=== PATIENT | female | born 1985 | race Caucasian/White ===

== ENCOUNTER → 2017-01-18 | Outpatient (CLI) | payer OTHER ==
[~2017-01-18] MED LIST: MISCCAP80 PO; MULT-506 PO
== END | disposition home or self-care (01) ==
LOC: C.PAPS 14:56
PROVIDERS: ATTEND Obstetrics & Gynecology
DX: Z12.4 Encounter for screening for malignant neoplasm of cervix (principal); R87.616 Satisfactory cervical smear but lacking transformation zone; Z87.42 Personal history of other diseases of the female genital tract

== ENCOUNTER → 2017-01-28 | Outpatient (CLI) | payer OTHER ==
[2017-01-28 13:19] LABS: PROLACTIN 7.54 ng/mL
== END ==
LOC: C.LAB 11:51
PROVIDERS: ATTEND Obstetrics & Gynecology
DX: Z31.41 Encounter for fertility testing (principal); L70.9 Acne, unspecified

== ENCOUNTER → 2017-02-27 | Outpatient (CLI) | payer OTHER | END | disposition home or self-care (01) | LOC: C.LAB1850 16:45 | PROVIDERS: ATTEND Obstetrics & Gynecology | DX: Z32.00 Encounter for pregnancy test, result unknown (principal) ==

== ENCOUNTER → 2017-03-23 | Outpatient (CLI) | payer OTHER ==
[2017-03-23 14:47] LABS: URINE APPEARANCE CLEAR (CLEAR); URINE BILIRUBIN NEG (NEG); URINE COLOR YELLOW; URINE NITRITE NEG (NEG); URINE PH 7.5 (4.5-7.5); URINE SPECIFIC GRAVITY 1.009 (1.000-1.030); UROBILINOGEN NEG (NEG)
[2017-03-23 14:49] LABS: MANUAL MICROSCOPIC REQUIRED? NO; REVIEW REQ? NO
[2017-03-27 04:24] LABS: CHLAMYDIA TRACH RNA*** NOT DETECTED (NOT DETECTED); GC (NEIS GONORRHOEAE)RNA** NOT DETECTED (NOT DETECTED)
== END | disposition home or self-care (01) ==
LOC: C.LABSPEC 13:30
PROVIDERS: ATTEND Obstetrics & Gynecology
DX: Z34.01 Encounter for supervision of normal first pregnancy, first trimester (principal)

== ENCOUNTER → 2017-03-23 | Outpatient (CLI) | payer OTHER ==
[2017-03-23 12:13] LABS: BASO % 0.2 %; BASO ABS # 0.02 K/uL (0-0.2); COMPLETE YES; IG% 0.2 %; LYMPH % 15.9 %; LYMPH ABS # 1.44 K/uL (1.2-3.4); MEAN CELL VOLUME 92.5 fL (80-100); MEAN CORPUSCULAR HEMOGLOBIN 31.4 pg (25-34); MEAN CORPUSCULAR HGB CONC 33.9 g/dl (32-36); MEAN PLATELET VOLUME 10.3 fL (7.4-10.4); NEUT % 73.7 %; PLATELET COUNT 253 K/uL (130-400); RED BLOOD COUNT 4.11 M/uL (4.2-5.4); WHITE BLOOD COUNT 9.08 K/uL (4.8-10.8)
== END | disposition home or self-care (01) ==
LOC: C.LAB1850 10:13
PROVIDERS: ATTEND Obstetrics & Gynecology
DX: Z34.01 Encounter for supervision of normal first pregnancy, first trimester (principal)

== ENCOUNTER → 2017-04-12 | Outpatient (CLI) | payer OTHER | END | disposition home or self-care (01) | LOC: C.LAB1850 16:39 | PROVIDERS: ATTEND Obstetrics & Gynecology | DX: Z13.79 Encounter for other screening for genetic and chromosomal anomalies (principal) ==

== ENCOUNTER → 2017-05-23 | Outpatient (CLI) | payer OTHER ==
[2017-05-23 13:18] LABS: GTGD 50 Grams
== END | disposition home or self-care (01) ==
LOC: C.LAB1850 09:25
PROVIDERS: ATTEND Obstetrics & Gynecology
DX: Z34.02 Encounter for supervision of normal first pregnancy, second trimester (principal)

== ENCOUNTER → 2017-06-01 | Outpatient (CLI) | payer OTHER ==
[2017-06-04 15:17] LABS: AFP CONCENTRATION 36.6 NG/ML; AFP MULTIPLE OF MEDIAN 0.86; AFPTS INSULIN DEP DIABETIC? NO; AFPTS MATERNAL WT 149 LBS; ALPHA-FETOPROTEIN RACE CAUCASIAN=W; HISTORY OF NTD NO; REPEAT SAMPLE? NO
== END | disposition home or self-care (01) ==
LOC: C.LAB1850 16:17
PROVIDERS: ATTEND Obstetrics & Gynecology
DX: Z34.02 Encounter for supervision of normal first pregnancy, second trimester (principal)

== ENCOUNTER → 2017-08-10 | Outpatient (CLI) | payer OTHER ==
[2017-08-10 11:38] LABS: HEMATOCRIT 34.2 % (37-47)
[2017-08-10 12:13] LABS: GTGD 50 Grams
== END | disposition home or self-care (01) ==
LOC: C.LAB1850 10:23
PROVIDERS: ATTEND Obstetrics & Gynecology
DX: Z34.03 Encounter for supervision of normal first pregnancy, third trimester (principal); Z3A.00 Weeks of gestation of pregnancy not specified

== ENCOUNTER → 2017-08-10 | Outpatient (CLI) | payer OTHER ==
[2017-08-10 14:41] LABS: MANUAL MICROSCOPIC REQUIRED? NO; REVIEW REQ? NO; URINE APPEARANCE CLEAR (CLEAR); URINE BILIRUBIN NEG (NEG); URINE COLOR YELLOW; URINE NITRITE NEG (NEG); URINE SPECIFIC GRAVITY 1.008 (1.000-1.030); UROBILINOGEN NEG (NEG)
== END | disposition home or self-care (01) ==
LOC: C.LABSPEC 13:54
PROVIDERS: ATTEND Obstetrics & Gynecology
DX: Z34.03 Encounter for supervision of normal first pregnancy, third trimester (principal); Z3A.00 Weeks of gestation of pregnancy not specified

== ENCOUNTER → 2017-10-05 | Outpatient (CLI) | payer OTHER | END | disposition home or self-care (01) | LOC: C.LABSPEC 17:39 | PROVIDERS: ATTEND Obstetrics & Gynecology | DX: Z34.03 Encounter for supervision of normal first pregnancy, third trimester (principal) ==

== ENCOUNTER 2017-10-31 05:30 | Inpatient (IN) | payer OTHER ==
--- NOTE | 2017-10-30 10:48 | PAT Medication Instructions ---
Service Date Oct 30, 2017. Current Home Medication List Multivit/Min/Iron/Fol Ac/Pren ( Vitamin), 1 TAB PO QPM Nutritional Supplements (Dhea), 1 TAB PO QPM Probiotic Product (Probiotic), 1 CAP PO QPM Medication Instructions For Your Scheduled Surgery - Take the following medications as scheduled the night before surgery: Probiotic Product (Probiotic), 1 CAP PO QPM Multivit/Min/Iron/Fol Ac/Pren ( Vitamin), 1 TAB PO QPM Nutritional Supplements (Dhea), 1 TAB PO QPM If you have any questions please call us at [phone] or [phone] or [phone]
[2017-10-30 11:21] LABS: BASO % 0.1 %; BASO ABS # 0.01 K/uL (0-0.2); COMPLETE YES; EOS % 0.5 %; HEMATOCRIT 37.7 % (37-47); IG% 0.3 %; LYMPH % 16.3 %; MEAN CELL VOLUME 91.3 fL (80-100); MEAN CORPUSCULAR HEMOGLOBIN 31.5 pg (25-34); MEAN CORPUSCULAR HGB CONC 34.5 g/dl (32-36); MEAN PLATELET VOLUME 10.6 fL (7.4-10.4); MONO % 11.7 %; NEUT % 71.1 %; PLATELET COUNT 259 K/uL (130-400); RED BLOOD COUNT 4.13 M/uL (4.2-5.4); WHITE BLOOD COUNT 9.18 K/uL (4.8-10.8)
[2017-10-30 11:29] LABS: ALT/SGPT 20 U/L (12-78); BLOOD UREA NITROGEN 11 mg/dl (7-18); BUN/CREATININE RATIO 18.2 (10-20); CALCIUM 9.3 mg/dl (8.5-10.1); CARBON DIOXIDE 22 mmol/L (21-32); CHLORIDE 104 mmol/L (98-107); CREATININE 0.58 mg/dl (0.60-1.20); GLUCOSE 69 mg/dl (70-99); POTASSIUM 3.8 mmol/L (3.5-5.1); SODIUM 134 mmol/L (136-145)
[2017-10-30 11:37] LABS: ALB/GLOB RATIO 0.7 (0.9-2); ALKALINE PHOSPHATASE 86 U/L (45-117); AST/SGOT 16 U/L (15-37)
[2017-10-31] VITALS (13 sets, daily range): BP systolic 118–135; BP diastolic 72–83; PULSE 69–78; TEMP 36.3–36.9; O2SAT 97–100; Ht 162.6 cm; Wt 78.5 kg
[~2017-10-31] VITALS: Ht 162.6 cm; Wt 78.5 kg
[~2017-10-31 05:30] MED LIST changes: -MULT-506 PO; +NUTR50CA PO; +PRENTAB26 PO
[2017-10-31] MEDS ORDERED: LACTATED RINGER'S 1000ML 1,000 ML IV SCH ×2 (05:35→05:45)
[2017-10-31] MEDS ORDERED: CITRIC ACID/SODIUM CITRATE 15 ML UDC PO ONE (05:45)
[2017-10-31] MEDS ORDERED: CEFAZOLIN SOD 2000MG/10 ML IV PUSH IV SCH (06:00)
[2017-10-31] MEDS ORDERED: CEFAZOLIN IV 2 MG in DEXTROSE 5% 50ML 50 ML IV SCH (06:00)
[2017-10-31 06:28] LABS: BASO % 0.1 %; BASO ABS # 0.01 K/uL (0-0.2); COMPLETE YES; EOS % 1.1 %; HEMATOCRIT 34.1 % (37-47); IG% 0.5 %; LYMPH % 21.9 %; LYMPH ABS # 1.79 K/uL (1.2-3.4); MEAN CELL VOLUME 91.9 fL (80-100); MEAN CORPUSCULAR HEMOGLOBIN 31.5 pg (25-34); MEAN CORPUSCULAR HGB CONC 34.3 g/dl (32-36); MEAN PLATELET VOLUME 10.3 fL (7.4-10.4); MONO % 9.9 %; NEUT % 66.5 %; PLATELET COUNT 228 K/uL (130-400); RED BLOOD COUNT 3.71 M/uL (4.2-5.4); WHITE BLOOD COUNT 8.16 K/uL (4.8-10.8)
[2017-10-31] MEDS ORDERED: MORPHINE SULFATE 1MG/1ML 30ML VIAL IV ONE (07:07)
[2017-10-31] MEDS ORDERED: LACTATED RINGER'S 1000ML 500 ML IV PRN (07:22)
[2017-10-31] MEDS ORDERED: NALOXONE HCL INJ 0.08 MG in SYRINGE 1.8 ML IV PRN (07:22)
[2017-10-31] MEDS ORDERED: SODIUM CHLORIDE 0.9% 1000ML 1,000 ML IV PRN (07:22)
[2017-10-31] MEDS ORDERED: NALOXONE HCL INJ 1 MG in SODIUM CHLORIDE 0.9% 1000ML 1,000 ML IV PRN ×4 (07:22)
[2017-10-31] MEDS ORDERED: PROMETHAZINE HCL INJ 12.5 MG in SODIUM CHLORIDE 0.9% 50ML 50 ML IV PRN ×4 (07:30)
[2017-10-31] MEDS ORDERED: PHENYLEPHRINE 100MCG/ML 5ML SYR IV PRN (07:30)
[2017-10-31] MEDS ORDERED: NO NARCOTICS OR SEDATIVES SCH (07:30)
[2017-10-31] MEDS ORDERED: DiphenhydrAMINE HCL 50 MG/ML VIAL IV PRN (07:30)
[2017-10-31] MEDS ORDERED: KETOROLAC TROMETHAMINE 30 MG/ML VIAL IV. PRN ×2 (07:30)
[2017-10-31] MEDS ORDERED: ATROPINE SULFATE 0.1 MG/ML 5ML SYR IV PRN (07:30)
[2017-10-31] MEDS ORDERED: MoRPHine SULFATE PF 1 MG/ML 10 ML AMP/VIAL EPI PRN (07:30)
[2017-10-31] MEDS ORDERED: EpHEDrine SULFATE INJ 50 MG/ML AMP IV PRN ×2 (07:30)
[2017-10-31] MEDS ORDERED: ONDANSETRON INJ 2 MG/ML 2 ML VIAL IV PRN ×2 (07:30)
[2017-10-31] MEDS ORDERED: NALOXONE HCL 0.4 MG/1 ML VIAL/CARP IV PRN (07:30)
[2017-10-31] MEDS ORDERED: MEPERIDINE HCL 25 MG/ML CARP IV PRN ×2 (07:30)
[2017-10-31] MEDS ORDERED: NALBUPHINE HCL INJ 10 MG/ML AMP IV PRN (07:30)
--- NOTE | 2017-10-31 07:37 | History and Physical ---
History & Physical Date Oct 31, 2017. Chief Complaint breech presentation History of Present Illness The patient is a 32yo @ 39 5/7. Breech presentation, scheduled . GBS carrier. SMA carrier - FOB negative. Fam hx lewis syndrome. H/o EGD. Past Medical/Surgical History see above Allergies Coded Allergies: Doxycycline (Verified Allergy, Unknown, Hives, 10/30/17) Home Medications Scheduled Multivit/Min/Iron/Fol Ac/Pren ( Vitamin), 1 TAB PO QPM Nutritional Supplements (Dhea), 1 TAB PO QPM Probiotic Product (Probiotic), 1 CAP PO QPM Physical Examination Head: normocephalic, atraumatic Respiratory/Chest: normal breath sounds, no respiratory distress Cardiovascular: regular rate, rhythm Abdomen / GI: non tender Extremities: normal inspection Genitourinary - Female: external genitalia normal Neurologic/Psych: no motor/sensory deficits, alert, oriented x 3 Plan of Treatment 32yo @ 39 5/7 plan for , primary.
--- NOTE | 2017-10-31 07:43 | History & Physical Bridge Note ---
H&P Re-Evaluation Bridge Note: I have examined the patient, reviewed the History & Physical and in the interval since the performance of the History & Physical I have noted the following changes of clinical significance: Limited bedside ultrasound performed - breech presentation, Rex breech, confirmed. Will proceed to c- section.
[2017-10-31] MEDS ORDERED: OXYTOCIN INJ 10 UNITS/ML VIAL ONE ×3 (08:11→08:40)
[2017-10-31] MEDS ORDERED: METOCLOPRAMIDE HCL INJ 5 MG/ML 2 ML VIAL ONE (08:11)
[2017-10-31] MEDS ORDERED: ONDANSETRON INJ 2 MG/ML 2 ML VIAL ONE (08:11)
[2017-10-31] MEDS ORDERED: SUCCINYLCHOLINE CHLORIDE 20 MG/ML 10 ML VIAL IV ONE (08:11)
[2017-10-31] MEDS ORDERED: PROPOFOL IV EMULSION 10 MG/ML 20 ML VIAL IV ONE (08:11)
[2017-10-31] MEDS ORDERED: PHENYLEPHRINE 100MCG/ML 5ML SYR ONE (08:12)
[2017-10-31] MEDS ORDERED: EpHEDrine SULFATE 50MG/5ML SYR ONE (08:12)
[2017-10-31] MEDS ORDERED: DC PCA PRN (08:45)
[2017-10-31] MEDS ORDERED: LANOLIN OINT EXT PRN ×2 (08:45)
[2017-10-31] MEDS ORDERED: MAGNESIUM HYDROXIDE SUSP 30 ML UDC PO PRN (08:45)
[2017-10-31] MEDS ORDERED: SUPERCREAM 0.870 % 15GM JAR EXT PRN (08:45)
[2017-10-31] MEDS ORDERED: SENNA 8.6 MG TAB PO PRN (08:45)
[2017-10-31] MEDS ORDERED: HYDROCORTISONE ACETATE 25 MG SUPP PR PRN (08:45)
[2017-10-31] MEDS ORDERED: BENZOCAINE 20% AER SPR 82.5 GM CAN EXT PRN (08:45)
--- NOTE | 2017-10-31 08:50 | [facility] Post Operative Brief Note ---
Immediate Operative Summary Operative Date Oct 31, 2017. Pre-Operative Diagnosis 1. 39.5 Weeks Gestation 2. Breech Presentation Post-Operative Diagnosis Same Procedure(s) Performed 1. Primary Caesarean Section for the of a live male child at [address]. Surgeon Dr[address] Ansari Motor Racer Surgeon(s) Dr. Davidson Estimated Blood Loss 600 Findings DELIVERED VIABLE MALE INFANT IN BREECH PRESENTATION, APGARS 3, 9, WEIGHT 7#15.8 OZS. NORMAL UTERUS, NORMAL FALLOPIAN TUBES AND OVARIES BILATERALLY. Fluids (cc crystalloids) 3000 cc Specimens 1. Placenta: Hold 2. Cord blood obtained. 3. Brionna-tubal cyst. Drains BROOKS TO STRAIGHT DRAINAGE, CLEAR AT END OF CASE Anesthesia SPINAL Complication(s) None Disposition Recovery Room / PACU
[2017-10-31] MEDS: SIMETHICONE 80 MG CHEW PO SCH ×4 (09:00→20:37)
--- NOTE | 2017-10-31 10:32 | OPERATIVE REPORT ---
DATE OF OPERATION: 10/31/2017 PREOPERATIVE DIAGNOSES: 1. A 32-year-old G1, P0 at 39 weeks 5 days. 2. Breech presentation. 3. Declined attempt at external cephalic version. POSTOPERATIVE DIAGNOSES: Same plus right paratubal cyst. PROCEDURES PERFORMED: 1. Primary low transverse section. 2. Removal of right paratubal cyst. SURGEON: Sophia Ansari DO. PROPERTY MANAGEMENT ACCOUNTANT: Dr. Davidson. ESTIMATED BLOOD LOSS: 600 mL. FINDINGS: Viable male in breech presentation, Apgars 3 and 9. Weight 7 pounds 15.8 ounces. Normal uterus, fallopian tubes and ovaries with the exception of 0.5 cm right paratubal cyst. FLUIDS: 300 mL. SPECIMENS: Placenta, cord blood, and paratubal cyst. DRAINS: Davis, clear yellow at conclusion of case. ANESTHESIA: Spinal. COMPLICATIONS: None. DISPOSITION: Stable and good to recovery area. INDICATIONS FOR PROCEDURE: The patient is a 32-year-old G1, P0 at 39 weeks 5 days, who had breech presentation. We discussed external cephalic version. She declined to do this and elected a primary section. DESCRIPTION OF PROCEDURE: The patient was seen in the office today prior to surgery and all risks, benefits, and alternatives were reviewed. She elected to proceed with surgery. Informed consent was obtained. She was taken to the operating room, where spinal anesthesia was administered. She was placed in the supine position with a leftward tilt and prepared and draped in the usual sterile fashion. A timeout was confirmed. Anesthesia was noted to be adequate. A skin incision was made with a scalpel and using blunt dissection, carried through to the underlying fascial layer. Fascia was nicked at midline and this incision was extended bluntly. The superior aspect of the fascial incision was grasped with Braden clamps x2, elevated off the underlying rectus abdominis muscles and dissected bluntly. In a similar fashion, the inferior aspect of the incision was dissected. The rectus abdominis muscles were at midline and the peritoneum was entered digitally. This incision was extended bluntly. The bladder blade was placed. Bladder flap was created using Metzenbaum scissors. The bladder blade was replaced. A new scalpel was used to make the uterine incision and the incision was extended cephalocaudad manually. The was delivered from a breech presentation. The feet were delivered first followed by the legs. Upon delivery of the buttocks, the baby was wrapped in a damp blue towel. The bilateral arms were swept. Nuchal cord x1 was noted. This was not reduced and the head was delivered. The baby was suctioned and stimulated on the field by Dr. Schilling, pest control service representative and the cord was doubly clamped and cut and the baby was taken to the baby warmer. A segment of cord was retained for cord gases. Cord blood was obtained. Placenta was then removed. The uterus was exteriorized and cleared of all clots and debris. It began to clamp down. Pitocin was given. The hysterotomy incision was reapproximated with a running locked stitch of 0 Vicryl. A second layer of the same suture was used to imbricate the incision. The posterior uterus was evaluated and this was found to be normal. Tubes and ovaries were normal except a small right paratubal cyst. This was removed with use of the Bovie cautery. This was sent to pathology for further evaluation. The uterus was replaced inside the abdomen. Bovie cautery was used to obtain excellent hemostasis as well as 2 sutures of 2-0 Vicryl in a [id number] stitch. The gutters were cleared of all clots and debris. The fascial incision was reapproximated using 0 Vicryl in a running stitch. Subcutaneous tissue was reapproximated using 2-0 plain gut suture in a running stitch. The skin was reapproximated using 4-0 Vicryl in a running subcuticular stitch. Steri-Strips were applied as well as the bandage. The patient was taken from the operating room to recovery area in stable and good condition. I attest to the content of the Intraoperative Record and any orders documented therein. Any exception s are noted below.
[2017-10-31] MEDS: OXYTOCIN INJ 20 UNITS in LACTATED RINGER'S 1000ML 1,000 ML IV SCH ×2 (14:33→22:14)
--- NOTE | 2017-10-31 15:59 | Anesthesiology Progress Note ---
Anesthesia Post Op Note Date & Time Oct 31, 2017 at 15:59 Vital Signs Pain Intensity: 4.0 Vital Signs Past 12 Hours Date Time Temp Pulse Resp B/P (MAP) Pulse Ox O2 Delivery O2 Flow Rate FiO2 10/31/17 15:00 18 99 10/31/17 13:00 Room Air 10/31/17 13:00 18 100 10/31/17 13:00 100 Room Air 10/31/17 13:00 36.4 71 18 118/74 (89) Room Air Notes Mental Status: alert / awake / arousable, participated in evaluation Pt Amnestic to Procedure: Yes Nausea / Vomiting: adequately controlled Pain: adequately controlled Airway Patency, RR, SpO2: stable & adequate BP & HR: stable & adequate Hydration State: stable & adequate Anesthetic Complications: no major complications apparent
[2017-10-31] MEDS: DOCUSATE SODIUM 100 MG CAP PO SCH (20:37)
[2017-11-01] MEDS ORDERED: ONDANSETRON INJ 2 MG/ML 2 ML VIAL IV PRN
[2017-11-01] MEDS ORDERED: KETOROLAC TROMETHAMINE 30 MG/ML VIAL IV. PRN
[2017-11-01] MEDS ORDERED: OXYCODONE/ACETAMINOPHEN 5-325 TAB PO PRN
[2017-11-01] MEDS ORDERED: DC INTRASPINAL MORPHINE ONE
[2017-11-01 03:45] VITALS: BP 130/81; PULSE 77; TEMP 36.9; O2SAT 95
[2017-11-01 07:11] LABS: BASO % 0.1 %; BASO ABS # 0.01 K/uL (0-0.2); COMPLETE YES; EOS % 0.3 %; IG% 0.4 %; LYMPH % 8.5 %; MEAN CELL VOLUME 91.9 fL (80-100); MEAN CORPUSCULAR HGB CONC 34.8 g/dl (32-36); MONO % 7.4 %; NEUT % 83.3 %; PLATELET COUNT 188 K/uL (130-400); RED BLOOD COUNT 3.59 M/uL (4.2-5.4); WHITE BLOOD COUNT 11.83 K/uL (4.8-10.8)
--- NOTE | 2017-11-01 07:32 | OB/GYN Progress Note ---
TECHNICAL OPERATOR Progress Note Date of Service Nov 01, 2017. Subjective conversation w/ patient, physical exam Ambulation: ambulating normally Voiding: no voiding problems Passing Gas: Yes Diet Tolerance: Regular Diet Lochia: Moderate Feeding Type: Breast Feeding Pain: controlled Review of Systems Constitutional: No problem reported Respiratory: No problem reported Cardiac: No problem reported Breast: No problem reported Abdomen: No problem reported Female : No problem reported Objective Vital Signs Date Time Temp Pulse Resp B/P (MAP) Pulse Ox O2 Delivery O2 Flow Rate FiO2 11/01/17 03:45 36.9 77 20 130/81 (97) 95 Room Air 10/31/17 23:30 18 98 10/31/17 23:30 98 Room Air 10/31/17 23:30 36.5 76 18 126/83 (97) 98 Room Air 10/31/17 23:00 18 97 10/31/17 22:00 16 98 10/31/17 21:00 20 99 10/31/17 20:00 36.9 78 20 135/72 (93) 98 Room Air 10/31/17 20:00 20 98 10/31/17 19:00 18 100 10/31/17 18:00 18 100 10/31/17 17:00 20 100 10/31/17 17:00 18 100 10/31/17 16:21 100 Room Air 10/31/17 16:00 18 100 10/31/17 15:59 36.3 69 18 120/72 (88) 100 Room Air 10/31/17 15:00 18 99 10/31/17 13:00 Room Air 10/31/17 13:00 18 100 10/31/17 13:00 100 Room Air 10/31/17 13:00 36.4 71 18 118/74 (89) Room Air Physical Exam General Appearance: WELL-APPEARING, NO APPARENT DISTRESS Respiratory/Chest: no respiratory distress Cardiovascular: regular rate, rhythm Abdomen: non tender, soft Fundus: Firm Incision Description: Clean, Dry & Intact Extremities: normal inspection Laboratory Results Last 24 Hours Test 11/01/17 06:32 White Blood Count 11.83 K/uL Red Blood Count 3.59 M/uL Hemoglobin 11.5 g/dL Hematocrit 33.0 % Mean Corpuscular Volume 91.9 fL Mean Corpuscular Hemoglobin 32.0 pg Mean Corpuscular Hemoglobin Concent 34.8 g/dl Platelet Count 188 K/uL Neutrophils (%) (Auto) 83.3 % Lymphocytes (%) (Auto) 8.5 % Monocytes (%) (Auto) 7.4 % Eosinophils (%) (Auto) 0.3 % Basophils (%) (Auto) 0.1 % Neutrophils # (Auto) 9.86 K/uL Lymphocytes # (Auto) 1.00 K/uL Monocytes # (Auto) 0.87 K/uL Eosinophils # (Auto) 0.04 K/uL Basophils # (Auto) 0.01 K/uL Immature Granulocyte % (Auto) 0.4 % Immature Granulocyte # (Auto) 0.05 K/uL Assessment and Plan Post-Op Day Number: 1 Continue Routine Care: POD#1 doing well. Continue routine postop care. Goals for today: PO hydration, ambulation.
[2017-11-01 08:00] VITALS: BP 131/87; PULSE 86; TEMP 36.9; O2SAT 99
[2017-11-01] MEDS: SIMETHICONE 80 MG CHEW PO SCH ×4 (08:22→19:25)
[2017-11-01] MEDS: FERROUS SULFATE 325 MG TAB PO SCH (08:23)
[2017-11-01] MEDS: PRENATAL VITAMIN TAB PO SCH (08:23)
[2017-11-01] MEDS: DOCUSATE SODIUM 100 MG CAP PO SCH ×2 (08:23→19:26)
[2017-11-01] MEDS: IBUPROFEN 600 MG TAB PO PRN ×2 (08:23→15:03)
[2017-11-01 12:25] VITALS: BP 137/80; PULSE 82; TEMP 36.7; O2SAT 97
[2017-11-01 16:40] VITALS: BP 125/83; PULSE 80; TEMP 36.8; O2SAT 98
[2017-11-01] MEDS: OXYCODONE/ACETAMINOPHEN 5-325 TAB PO PRN (19:25)
[2017-11-02] MEDS: IBUPROFEN 600 MG TAB PO PRN ×5 (00:01→21:01)
[2017-11-02 01:04] VITALS: BP 112/69; PULSE 89; TEMP 36.4
--- NOTE | 2017-11-02 06:39 | Progress Note ---
Subjective Nov 02, 2017. Subjective conversation w/ patient, physical exam, chart review, lab review Ambulation: ambulating normally Voiding: no voiding problems Passing Gas: Yes Diet Tolerance: Regular Diet Lochia: Moderate Feeding Type: Breast Feeding Pain: controlled Review of Systems Respiratory: No shortness of breath Female : No dysuria Objective Vital Signs Date Time Temp Pulse Resp B/P (MAP) Pulse Ox O2 Delivery O2 Flow Rate FiO2 11/02/17 01:07 Room Air 11/02/17 01:04 36.4 89 18 112/69 (83) Room Air 11/01/17 16:40 98 Room Air 11/01/17 16:40 36.8 80 16 125/83 (97) 98 Room Air 11/01/17 12:25 36.7 82 16 137/80 (99) 97 Room Air 11/01/17 08:00 36.9 86 16 131/87 (102) 99 Room Air 11/01/17 07:50 Room Air Physical Exam General Appearance: WELL-APPEARING, WD/WN, NO APPARENT DISTRESS Respiratory/Chest: lungs clear, normal breath sounds, no respiratory distress Cardiovascular: regular rate, rhythm, no gallop Abdomen: normal bowel sounds, soft Fundus: Firm, Non-Tender, Relation to Umbilicus (1 below U) Incision Description: Clean, Dry & Intact Extremities: non-tender, normal inspection Laboratory Results Last 24 Hours Test 11/02/17 06:00 Assessment and Plan Post-Op Day#: 2 Continue Routine Care: 32 yof delivered by for breech pres at 39-4 10/31 O+/RI/GBS + Vitals reviewed and wnl Hgb 13.0, 11.7, 11.5, today pending. Pt doing well clinically, discussed discharge - pt on the fence about staying one more night, appreciates the help from nursing for all baby needs. Desires to go home tomorrow. Continue routine post care - encouarge ambulation, support , control pain with motrin tylenol HARRIET DAVIDSON FMR PGY 1 Resident Physician Supervision Note: I interviewed and examined the patient. Discussed with Dr. Davidson and agree with findings and plan as documented in the note. Any exceptions or clarifications are listed here: [None] Documented By: Osbaldo Cornell Resident Tracking Resident Involvement: Resident Care Provided Care Provided: OB Delivery
[2017-11-02] MEDS: PRENATAL VITAMIN TAB PO SCH (08:19)
[2017-11-02] MEDS: FERROUS SULFATE 325 MG TAB PO SCH (08:19)
[2017-11-02] MEDS: DOCUSATE SODIUM 100 MG CAP PO SCH ×2 (08:19→21:01)
[2017-11-02] MEDS: SIMETHICONE 80 MG CHEW PO SCH ×4 (08:19→21:02)
[2017-11-02 08:30] VITALS: BP 117/79; PULSE 69; TEMP 36.4
--- NOTE | 2017-11-02 13:33 | Discharge Instructions ---
Discharge Instructions Date of Service Nov 02, 2017. Admission Reason for Admission: Breech Presentation Discharge Discharge Diagnosis / Problem: Delivery Discharge Goals Goal(s): Routine recovery after Medications Continue Dispensed Medications: supercream, lansinoh Activity Recommendations Activity Limitations: per Instructions/Follow-up section . Instructions / Follow-Up Instructions / Follow-Up ACTIVITY RECOMMENDATIONS: * Gradual return to full activity over the next 2-3 weeks. * No lifting - nothing heavier than baby over the next 2-3 weeks. * Do not engage in vigorous exercise, sexual activity or sports until cleared by your physician. * Do not drive or operate any motorized equipment until cleared by your physician. * You may shower/bathe daily. MEDICATIONS: For discomfort or pain, you may use Acetaminophen (Tylenol), Ibuprofen (Advil), or Naproxen (Aleve) following the package directions. For constipation you may use Colace following the package directions. BREAST CARE: If you are not breast feeding: * Wear a supportive bra 24 hours a day for one to two weeks. * Avoid stimulating your breasts and nipples as much as possible during the first few weeks after delivery. * When taking a shower, have the warm water hit your back, not breasts. * When your breasts feel full, apply ice packs. Usually three to four times a day helps ease the discomfort. * Take a mild pain medication (Tylenol / Motrin) when you are uncomfortable. If breast feeding: * Use breast milk to lubricate nipples. Lansinoh cream may be used for sore nipples. You do not need to remove cream prior to breast feeding. If using a different brand of cream, check the label for directions regarding removal of cream prior to nursing. * Wear a supportive bra. * If having problems with breasts or breast feeding, call a [employer] consultant or your health care provider. SPECIAL CARE INSTRUCTIONS: When you are discharged from the hospital, it is important for you to follow the instructions listed below: * During the first week at home, you should be able to care for yourself and your baby. In addition, the usual light household activities are encouraged. * Limit your activities to the way you feel. Do not try to clean the house or move furniture. Be sensible. * If you actively engage in sports and have done so up until the time of your delivery, you may resume these activities as soon as you feel able. This may take up to one month or even longer. Use good judgment. * Continue to take your vitamins for at least six weeks after the of your baby. * Your diet need not be limited unless you were on a special diet before your delivery. Breast-feeding mothers need around 2500 calories per day and at least 64-80 ounces of fluid per day (8 to 10 glasses). * You should eat foods from the four major food groups. Crash diets or fad diets are to be avoided. Eating lean meats, fresh fruits and vegetables, low-fat dairy products, high fiber foods and a regular exercise program, will help you get back to your pre- weight without putting your health at risk. * Constipation is sometimes a problem after delivery. Take a mild laxative as needed. If breast feeding, Milk of Magnesia is acceptable to use. You may use a suppository or Fleets enema. * A daily shower or tub bath is suggested. Wash incision daily with warm soapy water and pat dry. It doesn't need to be covered unless drainage is present. * A bloody vaginal discharge will usually continue until around four weeks . A small amount of bleeding may continue for as long as six weeks. Vaginal discharge changes from the bright red bleeding after delivery to pink then brownish and finally yellowish-pink before becoming white and disappearing. * Bleeding may increase with activity. Your first period may come in 4-8 weeks. If you are breast feeding, your period may be delayed even longer. * Myra (sex) can begin whenever both you and your partner feel comfortable and do not have any form of genital infection. It is recommended that you wait at least six weeks for internal and external healing to occur. If you have questions, please talk to your health care practitioner. A condom should be used to prevent infection and . * Foreplay, gentle intercourse and lubrication is very important the first several times to prevent pain. A water-based lubricant such as K-Y jelly or Astroglide may be used. * If you have RH negative blood and your baby is RH positive, you will receive RHOGAM by injection prior to discharge. The nurse will give you a card to keep with you that has the date and place that you received RHOGAM after delivery. * During your care, you had a Rubella screen done to check for the presence of rubella antibodies in your blood. If your test was negative, you will receive a Rubella vaccine prior to discharge. This vaccine may cause a fever, soreness at the injection site and flu-like symptoms. If these symptoms persist, notify your health care practitioner. is not advised for one month after a Rubella vaccine. * Verbalizes understanding of car seat law as reviewed with patient nursing. * Car Seat hand-out given and reviewed with patient by nursing. * Shaken baby information reviewed with patient by nursing. Call you doctor if: * Heavy bleeding (saturating several pads an hour) or passing clots the size of your fist. * A fever >101 degrees F (38.3 degrees C) on two occasions four hours apart and /or chills. * Unusual pain in the pelvic or vaginal areas. * Call the doctor for any increased redness, drainage or swelling around the incision and any pain unrelieved by prescribed pain medication. * "Baby Blues" lasting longer than two weeks. If you have any questions or concerns, call your health care practitioner at . FOLLOW UP VISIT: * Please call the office at to schedule a 6 week examination. It is important you keep this appointment. It is important for you to make arrangements for either yearly or twice yearly check-ups thereafter. Current Hospital Diet Patient's current hospital diet: Regular OB Diet Discharge Diet Recommended Diet: Regular Diet Procedures Procedures Performed: 1. Primary Caesarean Section for the of a live male child at 0806. Pending Studies Studies pending at discharge: no Medical Emergencies . Who to Call and When: Medical Emergencies: If at any time you feel your situation is an emergency, please call [phone] immediately. . Non-Emergent Contact Non-Emergency issues call your: Primary Care Provider . . "Provider Documentation" section prepared by Mariama Davidson. . VTE Core Measure Inpt VTE Proph given/why not?: SCD's
[2017-11-02 15:50] VITALS: BP 134/83; PULSE 72; TEMP 36.5
[2017-11-03 00:15] VITALS: BP 119/77; PULSE 65; TEMP 36.7
[2017-11-03] MEDS: IBUPROFEN 600 MG TAB PO PRN ×2 (03:59→10:40)
[2017-11-03] MEDS: OXYCODONE/ACETAMINOPHEN 5-325 TAB PO PRN ×2 (05:57→10:41)
--- NOTE | 2017-11-03 07:36 | Progress Note ---
Subjective Nov 03, 2017. Subjective conversation w/ patient, physical exam, chart review, lab review Ambulation: ambulating normally Voiding: no voiding problems Passing Gas: Yes Diet Tolerance: Regular Diet Lochia: Moderate Feeding Type: Breast Feeding Pain: controlled Review of Systems Respiratory: No shortness of breath Abdomen: No vomiting Female : No dysuria Objective Vital Signs Date Time Temp Pulse Resp B/P (MAP) Pulse Ox O2 Delivery O2 Flow Rate FiO2 11/03/17 00:15 Room Air 11/03/17 00:15 36.7 65 18 119/77 (91) Room Air 11/02/17 15:50 Room Air 11/02/17 15:50 36.5 72 18 134/83 (100) Room Air 11/02/17 08:30 36.4 69 20 117/79 (92) Physical Exam General Appearance: WELL-APPEARING, WD/WN, NO APPARENT DISTRESS Respiratory/Chest: lungs clear, normal breath sounds, no respiratory distress Cardiovascular: regular rate, rhythm, no gallop Abdomen: normal bowel sounds, soft Fundus: Firm, Non-Tender, Relation to Umbilicus (2 below U) Incision Description: Clean, Dry & Intact Extremities: non-tender, normal inspection Assessment and Plan Post-Op Day#: 3 Continue Routine Care: 32 yof delivered by for breech pres at 39-4 10/31 O+/RI/GBS + Vitals reviewed and wnl Hgb 13.0, 11.7, 11.5, 10.7. No s/s anemia. Pt doing well clinically, counselled on discharge. Continue routine post care - encouarge ambulation, support , control pain with motrin tylenol/percocet. Dr. Graves will write for several days of percocet. HARRIET DAVIDSON FMR PGY 1 Resident Physician Supervision Note: I was present with Dr. Davidson during the history and exam. I discussed the case with the resident and agree with the findings and plan as documented in the note. Any exceptions or clarifications are listed here: [None] Documented By: Carmen Graves Resident Tracking Resident Involvement: Resident Care Provided Care Provided: OB Delivery
[2017-11-03] MEDS ORDERED: OXYC-57 PO (07:59)
[2017-11-03] MEDS: SIMETHICONE 80 MG CHEW PO SCH (08:47)
[2017-11-03] MEDS: PRENATAL VITAMIN TAB PO SCH (08:48)
[2017-11-03] MEDS: DOCUSATE SODIUM 100 MG CAP PO SCH (08:48)
[2017-11-03] MEDS: FERROUS SULFATE 325 MG TAB PO SCH (08:48)
[2017-11-03 09:05] VITALS: BP 136/80; PULSE 68; TEMP 36.7
[2017-11-03 10:51] VITALS: BP_DIAS 80; PULSE 68; TEMP 36.7
== END 2017-11-03 12:50 | disposition home or self-care (01) | DRG 766 ==
LOC: C.LD 05:30 → EDSTATUS 07:30 → C.OBG 13:07
PROVIDERS: ADMIT Obstetrics & Gynecology; ATTEND Obstetrics & Gynecology
PROC: 0UB60ZZ Excision of Left Fallopian Tube, Open Approach (ICD-10-PCS; principal; 2017-10-31 07:30)
PROC: 10D00Z1 Extraction of Products of Conception, Low, Open Approach (ICD-10-PCS; principal; 2017-10-31 07:30)
DX: O32.1XX0 Maternal care for breech presentation, not applicable or unspecified (principal); O26.893 Other specified pregnancy related conditions, third trimester; N83.8 Other noninflammatory disorders of ovary, fallopian tube and broad ligament; Z3A.39 39 weeks gestation of pregnancy; Z37.0 Single live birth; O69.81X0 Labor and delivery complicated by cord around neck, without compression, not applicable or unspecified

== ENCOUNTER → 2017-12-18 | Outpatient (CLI) | payer OTHER ==
[~2017-12-18] MED LIST changes: +OXYC-57 PO
== END | disposition home or self-care (01) ==
LOC: C.LABSPEC 16:02
PROVIDERS: ATTEND Dermatology
DX: T81.89XA Other complications of procedures, not elsewhere classified, initial encounter (principal); Y83.9 Surgical procedure, unspecified as the cause of abnormal reaction of the patient, or of later complication, without mention of misadventure at the time of the procedure

== ENCOUNTER 2020-06-18 21:53 | Inpatient (IN) ==
[2020-06-18] MEDS ORDERED: OXYTOCIN 30 UNITS/500 ML BAG IV PRN (22:33)
[2020-06-18] MEDS ORDERED: PENICILLIN G POTASSIUM 6 MU in DEXTROSE 5% 250 ML IV STA (22:33)
[2020-06-18] MEDS ORDERED: BUPIVACAINE 0.25% 30 ML VIAL ONE (22:42)
[2020-06-18] MEDS ORDERED: ePHEDrine sulfate 50 MG/ML AMP ONE (22:42)
[2020-06-18] MEDS ORDERED: fentaNYL citrate 100 MCG/2 ML VIAL ONE (22:43)
[2020-06-18] MEDS ORDERED: fentaNYL 2MCG/ML ROPIV 1.25MG/ML 100 ML BAG EPI ONE (22:43)
[2020-06-18 22:52] LABS: Hemoglobin 13.1 g/dL (12.0-16.0); Mean Corpuscular Hemoglobin 30.5 pg (25-34); Mean Corpuscular Volume 88.6 fL (80-100); Platelet Count 282 K/uL (130-400); RDW Coefficient of Variation 13.5 % (11.5-14.5); RDW Standard Deviation 43.8 fL (36.4-46.3); Red Blood Count 4.29 M/uL (4.2-5.4); White Blood Count 16.28 K/uL (4.8-10.8)
[2020-06-18] MEDS: LACTATED RINGER'S 1,000 ML IV PRN (22:52)
[2020-06-18 23:00] LABS: Mean Corpuscular Hgb Conc 34.5 g/dL (32-36)
--- NOTE | 2020-06-18 23:18 | Anesthesiology Consultation ---
Date of Service June 18, 2020 Assessment & Plan (1) Encounter for pre-operative examination: Chart Review Chart Review: Acceptable Risk for Surgery Consults Requested none ASA ASA2 Proposed Anesthesia Anesthesia Type: Labor Epidural Risk / Benefits Reviewed With: PT / POA / Parent / Guardian, Accepts Plan and Informed Consent Obtained History Height/Weight Height: 5 ft 4 in Weight: 81.647 kg Allergies Allergy/AdvReac Type Severity Reaction Status Date / Time doxycycline Allergy Unknown Hives Verified 06/18/20 10:19 Medications Home Medications Medication Instructions Recorded Confirmed Last Taken Probiotic 1 tab PO QPM 02/19/19 06/18/20 06/17/20 08:00 vit [id number] 1 tab PO DAILY 06/18/20 06/18/20 06/17/20 20:00 [ Vitamin] Active Medications Generic Name Dose Route Start Last Admin Trade Name Freq PRN Reason Stop Dose Admin Lactated Ringer's 1,000 mls @ 125 mls/hr 06/18/20 22:33 06/18/20 23:33 Lr IV 06/20/20 22:32 125 mls/hr .Q8H PRN Infusion L&D Protocol Protocol NPO Date Last Intake of Fluids: 06/18/20 Time Last Intake of Fluids: 23:14 Date Last Intake of Solids: 06/18/20 Time Last Intake of Solids: 13:00 Past Medical History Medical History Acne vulgaris Encounter for anatomic survey Multiple benign nevi No known health problems Exercise / Class Metabolic Activity II 4-5 Yardwork/Stairs/Walk up hill Past Family History Family History Grandfather (Maternal) Family hx colonic polyps Mother Family history of Pugh syndrome Lymphoma Uterine cancer Father Leukemia Other No family history of adverse response to anesthesia Past Surgical History Surgical History History of section X1 History of colonoscopy History of esophagogastroduodenoscopy (EGD) History of loop electrical excision procedure (LEEP) History of wisdom tooth extraction Past Anesthesia History No Hx of Anesthesia Complications History of PONV No Hx of PONV Social History Smoking Status: Never smoker Hx Alcohol Use: No Alcohol type: wine alcohol intake frequency: a few times a month Hx Substance Use: No substance use type: does not use Review of Systems Patient denies history of abnormal bleeding or bleeding disorder. Patient denies active use of anticoagulants other than low dose aspirin. Negative for chest pain or shortness of breath. Patient denies numbness, tingling or weakness in lower extremities. Physical Exam Vital Signs Last Vital Signs Temp 36.7 C 06/18/20 22:17 Pulse 90 06/18/20 22:23 Resp 18 06/18/20 22:17 BP 121/91 06/18/20 22:23 Constitutional not obese (Gravid uterus) ENMT Mouth: no TMJ abnormality and oral opening not small Thyromental Distance: > or= 3.5 Finger Breadths Mallampati Class: II Neck normal visual inspection; neck extension not limited Respiratory normal respiratory effort, lungs clear to auscultation normal respiratory effort Auscultation: lungs clear to auscultation bilaterally Cardiovascular Rate/Rhythm: regular rate and regular rhythm Heart Sounds: no murmur Neurologic moves all extremities Motor/Sensory: no sensory deficit Psychiatric Orientation: alert and oriented x 3 Testing Laboratory Results 06/18/20 22:43
[2020-06-19] MEDS ORDERED: NALOXONE HCL 0.4 MG/1 ML VIAL/CARP IV PRN (00:05)
[2020-06-19] MEDS ORDERED: DiphenhydrAMINE HCL 50 MG/ML VIAL IV PRN (00:05)
[2020-06-19] MEDS ORDERED: ePHEDrine sulfate 50 MG/ML AMP IV PRN (00:05)
[2020-06-19] MEDS ORDERED: ONDANSETRON INJ 2 MG/ML 2 ML VIAL IV PRN (00:05)
[2020-06-19] MEDS ORDERED: NALOXONE HCL 1 MG in SODIUM CHLORIDE 0.9% 1000ML 1,000 ML IV PRN (00:05)
[2020-06-19] MEDS: PENICILLIN G POTASSIUM 3 MU in DEXTROSE 5% 100 ML IV PRN ×4 (02:35→14:34)
[2020-06-19] MEDS: LACTATED RINGER'S 1,000 ML IV PRN ×2 (02:35→10:25)
--- NOTE | 2020-06-19 04:14 | Labor Progress Brief Note ---
Date of Service June 19, 2020 Subjective Comfortable with epidural Assessment & Plan Admission and Anticipated Discharge Date Admission Date: June 18, 2020 Physical Exam Genitourinary: Large bloody show noted, ?fluid soaking the chux beyond the blood stain suggesting SROM. AROM of forebag for copious mec-stained fluid. /2 well applied afterwards. FHT Cat 1 Blair was Q2-7 irreg vs not well traced Results & Data ([facility]) Vital Signs (Past 12 Hours) Vital Signs Temp Pulse Resp BP Pulse Ox 06/19/20 04:09 75 99 06/19/20 04:04 87 115/71 100 06/19/20 03:59 79 98 06/19/20 03:54 83 98 06/19/20 03:49 92 H 114/59 L 99 06/19/20 03:44 87 98 06/19/20 03:39 92 H 99 06/19/20 03:34 83 99 06/19/20 03:33 82 126/68 06/19/20 03:29 76 99 06/19/20 03:24 84 96 06/19/20 03:19 80 137/66 99 06/19/20 03:14 75 99 06/19/20 03:09 82 99 06/19/20 03:04 80 124/61 100 06/19/20 02:59 81 99 06/19/20 02:54 93 H 100 06/19/20 02:49 101 H 124/77 99 06/19/20 02:44 87 99 06/19/20 02:43 98.6 F 18 06/19/20 02:39 81 100 06/19/20 02:34 105 H 132/80 100 06/19/20 02:29 80 100 06/19/20 02:24 92 H 100 06/19/20 02:19 87 109/56 L 100 06/19/20 02:14 78 99 06/19/20 02:09 86 99 06/19/20 02:04 98 H 116/75 100 06/19/20 01:59 92 H 100 06/19/20 01:54 85 100 06/19/20 01:50 75 116/62 06/19/20 01:49 75 100 06/19/20 01:44 77 100 06/19/20 01:39 80 100 06/19/20 01:34 85 100 06/19/20 01:33 83 122/65 06/19/20 01:29 88 99 06/19/20 01:24 88 99 06/19/20 01:19 79 115/61 99 06/19/20 01:14 91 H 100 06/19/20 01:09 88 97 06/19/20 01:05 70 118/59 L 06/19/20 01:04 72 100 06/19/20 01:01 18 06/19/20 00:59 74 99 06/19/20 00:54 70 99 06/19/20 00:49 73 125/67 99 06/19/20 00:44 77 100 06/19/20 00:39 79 100 06/19/20 00:35 71 117/63 06/19/20 00:34 70 100 06/19/20 00:29 82 99 06/19/20 00:25 16 06/19/20 00:24 96 H 99 06/19/20 00:20 65 129/60 06/19/20 00:19 68 100 06/19/20 00:14 70 100 06/19/20 00:09 75 100 06/19/20 00:04 74 100 06/19/20 00:03 71 133/71 06/19/20 00:01 93 H 118/61 06/18/20 23:59 71 121/61 100 06/18/20 23:58 72 122/58 L 06/18/20 23:56 83 121/57 L 06/18/20 23:55 18 06/18/20 23:54 79 100 06/18/20 23:53 75 146/70 H 06/18/20 23:51 82 134/66 06/18/20 23:50 18 06/18/20 23:49 79 100 06/18/20 23:47 80 122/58 L 06/18/20 23:45 83 18 132/71 06/18/20 23:44 94 H 100 06/18/20 23:43 97 H 108/58 L 06/18/20 23:41 102 H 106/63 06/18/20 23:40 16 06/18/20 23:39 102 H 116/66 100 06/18/20 23:38 106 H 123/71 06/18/20 23:36 100 H 134/73 06/18/20 23:35 18 06/18/20 23:34 88 131/80 100 06/18/20 23:30 83 139/83 06/18/20 23:29 80 100 06/18/20 23:24 86 100 06/18/20 23:19 82 99 06/18/20 22:23 90 121/91 06/18/20 22:17 98.1 F 18 06/18/20 22:13 96 H 140/83 Coding Level of Care Code None
[2020-06-19] MEDS: fentaNYL 2MCG/ML ROPIV 1.25MG/ML 100 ML BAG EPI PRN ×2 (06:04→12:15)
[2020-06-19] MEDS ORDERED: BUPIVACAINE 0.25% 30 ML VIAL ONE (10:38)
[2020-06-19] MEDS ORDERED: OXYTOCIN 30 UNITS/500 ML BAG IV PRN ×2 (13:26→17:13)
--- NOTE | 2020-06-19 17:07 | Anesthesia Procedure Note ---
Date of Service June 19, 2020 Anesthesia Post Epidural Note Vital Signs Vital Signs: Temp Pulse Resp BP Pulse Ox 37.4 C 76 22 124/92 99 06/19/20 13:49 06/19/20 17:04 06/19/20 13:49 06/19/20 17:04 06/19/20 15:44 Notes Mental Status: alert / awake / arousable and participated in evaluation Nausea / Vomiting: adequately controlled Pain: adequately controlled Airway Patency, RR, SpO2: stable & adequate BP & HR: stable & adequate Hydration State: stable & adequate Neuraxial Anesthesia: was administered and sensory block is resolving Anesthetic Complications: no major complications apparent and Pt Satisfied with anesthetic care Epidural: Removed without complications and With tip intact Notes: Epidural site clean, dry and intact. No signs of edema, erythema or bruising at insertion site. Pt instructed to request anesthesia if she has residual lower extremity numbness or if she develops lower extremity pain or weakness, back pain or headache.
[2020-06-19] MEDS ORDERED: bisacodyL 10 MG SUPP PR PRN (17:13)
[2020-06-19] MEDS ORDERED: SUPERCREAM 0.870% 15 GM JAR EXT PRN (17:13)
[2020-06-19] MEDS ORDERED: DIPHTHERIA/TETANUS/PERTUSSIS 0.5 ML SYR/VIAL IM ONE (17:13)
[2020-06-19] MEDS ORDERED: BENZOCAINE 20% AER SPR 82.5 GM CAN EXT PRN (17:13)
[2020-06-19] MEDS ORDERED: HYDROCORTISONE ACETATE 25 MG SUPP PR PRN (17:13)
[2020-06-19] MEDS: ACETAMINOPHEN 325 MG TAB PO PRN ×2 (17:39→21:08)
--- NOTE | 2020-06-19 18:23 | CT Scan Report ---
CT abd pelvis wo con CT DOSE: 449.87 mGy.cm HISTORY: Pain abdominal pain post TECHNIQUE: Multiaxial CT images of the abdomen and pelvis were performed without contrast. A dose lo wering technique was utilized adhering to the principles of ALARA. COMPARISON STUDY: None. FINDINGS: Lung bases are clear. The liver spleen and pancreas are grossly unremarkable. Kidneys are negative for hydronephrosis or nephrocalcinosis. The uterus is distended given the patient's post state. There is blood within the right latera l soft tissue pelvic region of uncertain origin. Large post gravid uterus displaces bowel loops. Brenden l itself does not appear to be obstructed. The bladder is midline. There are no calcifications within the bladder. IMPRESSION: 1. Enlarged uterus consistent with the patient's postdelivery status. 2.. This displaces the bowel laterally and anteriorly. 3. Large fluid/blood collection in the region right lateral to the uterus... 4. Etiology of the blood, however is not confirmed based on this examination, although origin from th e region of the right ovary must be considered given its location, as well as a potential origin from the right lateral aspect of the distended uterus. 5. Liver spleen pancreas and kidneys appear unremarkable. ACT 112: Negative or not required by law. The above report was generated using voice recognition software. It may contain grammatical, syntax or spelling errors. Electronically signed by: Rick Huynh M.D. 06/19/2020 6:22 PM
[2020-06-19] MEDS: IBUPROFEN 600 MG TAB PO PRN (19:11)
[2020-06-19] MEDS: DOCUSATE SODIUM 100 MG CAP PO SCH (21:08)
[2020-06-20] MEDS: IBUPROFEN 600 MG TAB PO PRN ×3 (00:03→11:47)
--- NOTE | 2020-06-20 00:55 | Delivery Summary ---
DATE OF OPERATION: 06/19/2020 PROCEDURE: Vaginal after section with second-degree and bilateral periurethral laceration repairs. SURGEON: Baldev Patel MD PREOPERATIVE DIAGNOSES: 1. Single intrauterine at term. 2. Spontaneous labor. 3. Spontaneous rupture of membranes. 4. History of prior section. 5. Trial of labor after section. 6. GBS positive. POSTOPERATIVE DIAGNOSES: 1. Single intrauterine at term. 2. Spontaneous labor. 3. Spontaneous rupture of membranes. 4. History of prior section. 5. Trial of labor after section. 6. GBS positive. 7. Status post procedure. ESTIMATED BLOOD LOSS: 500 mL. DRAINS: Straight cath at the completion of the case. COMPLICATIONS: None. FINDINGS: Viable male infant with weight pending and Apgars of 6 and 9 at 1 and 5 minutes respectively. DESCRIPTION OF PROCEDURE: The patient progressed to 10 cm dilated, 100% effaced, +3 station, pushed over intact perineum with epidural anesthesia and delivered a viable male infant with weight and Apgars are as noted above. Head of the delivered in KENDRICK position. After delivery of the head, there was noted to be approximately 200-300 mL of blood clot followed. The body and shoulders did quickly followed and was noted to have some initial cries and a 1-minute delayed cord clamping was initiated. Cord was then double clamped and cut and taken to the waiting nursery staff for further evaluation. There was noted to be pretty typical bleeding following delivery of placenta which delivered intact, 3-vessel cord, gentle cord traction. On inspection of perineum, vagina, and cervix, there was noted to be a second degree perineal laceration which was repaired with 3-0 Vicryl in traditional crown stitch. There was also noted to be bilateral periurethral lacerations repaired with 3-0 Vicryl in an interrupted stitch. Inspection of the lower uterine segment was attempted and no disruption was appreciated on exam, although exam was difficult secondary to a strong uterine tone. Needle, sponge and instrument counts were correct at the completion of the case. Both mother and were stable in the immediate post-delivery period. I attest to the content of the Intraoperative Record and any orders documented therein. Any exception s are noted below.
[2020-06-20 06:41] LABS: Hemoglobin 10.7 g/dL (12.0-16.0); Mean Corpuscular Hemoglobin 30.5 pg (25-34); Mean Corpuscular Hgb Conc 34.5 g/dL (32-36); Mean Corpuscular Volume 88.3 fL (80-100); Mean Platelet Volume 9.8 fL (7.4-10.4); Platelet Count 234 K/uL (130-400); RDW Coefficient of Variation 13.8 % (11.5-14.5); RDW Standard Deviation 44.4 fL (36.4-46.3); Red Blood Count 3.51 M/uL (4.2-5.4); White Blood Count 20.06 K/uL (4.8-10.8)
[2020-06-20] MEDS: ACETAMINOPHEN 325 MG TAB PO PRN (06:47)
[2020-06-20] MEDS ORDERED: PRENATAL VITAMIN 1 TAB PO SCH (08:00)
[2020-06-20] MEDS: DOCUSATE SODIUM 100 MG CAP PO SCH (09:04)
--- NOTE | 2020-06-20 10:14 | Obstetrical Progress Note ---
Date of Service June 20, 2020 Assessment & Plan (1) Encounter for care and examination after delivery: Patient doing well. Day 1 S/p . Routine care. Stable for discharge Subjective Ambulation: ambulating normally Voiding: no voiding problems Passing Gas:: Yes Diet Tolerance:: regular diet Lochia:: Moderate Feeding Type:: breast feeding Physical Exam Constitutional WD/WN, vitals as above Respiratory normal respiratory effort; no respiratory distress and no labored breathing Gastrointestinal (Abdomen) Inspection/Auscultation: abdomen normal to inspection; abdomen not distended Percussion/Palpation: abdomen soft; abdomen nontender, no guarding and abdomen not rigid Genitourinary OB Exam Abdomen: + fundal height Fundus: + firm and + relation to umbilicus (Below); not tender and not boggy Results & Data ([facility]) Vital Signs (Past 12 Hours) Vital Signs Temp Pulse Resp BP Pulse Ox 06/20/20 07:40 36.5 C 68 18 126/78 97 06/20/20 04:00 36.5 C 70 18 129/72 06/19/20 23:55 36.5 C 80 18 138/81
[2020-06-20] MEDS ORDERED: bisacodyL 5 MG TABEC PO SCH (20:00)
== END 2020-06-20 16:40 | disposition home or self-care (01) | DRG 807 ==
LOC: OPB 21:53 → 4S1 21:55 → 4S2 06-19 20:18